=== PATIENT | male | born 1965 | race Caucasian/White ===

== ENCOUNTER 2020-01-02 03:35 | Emergency (ER) | payer BC ==
[2020-01-02 04:22] LABS: Basophils # (A) 0.1 k/uL (0-0.2); Basophils % (A) 1 %; Eosinophils # (A) 0.2 k/uL (0-0.7); Eosinophils % (A) 2 %; HCT 39.3 % (39.0-53.0); HGB 12.8 gm/dL (13.0-17.5); Lymphocytes # (A) 2.1 k/uL (1.0-4.8); Lymphocytes % (A) 25 %; MCH 27.3 pg (25.0-35.0); MCHC 32.7 g/dL (31.0-37.0); MCV 83.5 fL (80.0-100.0); Mean Platelet Volume 7.3; Monocytes # (A) 0.5 k/uL (0-1.0); Monocytes % (A) 6 %; Neutrophils # (A) 5.6 k/uL (1.3-7.7); Neutrophils % (A) 66 %; Platelet Count 340 k/uL (150-450); RDW 12.6 % (11.5-15.5); WBC 8.5 k/uL (3.8-10.6)
--- NOTE | 2020-01-02 04:33 | XR ---
EXAMINATION TYPE: XR chest 2V DATE OF EXAM: 01/02/2020 COMPARISON: 11/29/2013 HISTORY: Chest pain TECHNIQUE: FINDINGS: Heart and mediastinum are normal. Lungs are clear. Diaphragm is normal. Bony thorax is inta ct. There are chest leads. IMPRESSION: Normal chest. No change.
[2020-01-02 04:34] LABS: ALT 38 U/L (4-49); AST 32 U/L (17-59); African American GFR (CKD) >90 (>60 ml/min/1.73 sqM); Albumin 4.4 g/dL (3.5-5.0); Alkaline Phosphatase 68 U/L (38-126); Anion Gap 7 mmol/L; Blood Urea Nitrogen 11 mg/dL (9-20); Calcium 9.4 mg/dL (8.4-10.2); Carbon Dioxide 26 mmol/L (22-30); Chloride 105 mmol/L (98-107); Glucose 112 mg/dL (74-99); Non-African American GFR(CKD) >90 (>60 ml/min/1.73 sqM); Potassium 4.1 mmol/L (3.5-5.1); Sodium 138 mmol/L (137-145); Total Bilirubin 0.2 mg/dL (0.2-1.3); Total Protein 7.3 g/dL (6.3-8.2)
--- NOTE | 2020-01-02 05:00 | ED ---
General Adult HPI - General Chief complaint: Dizziness Stated complaint: High BP Time Seen by Provider: 01/02/20 03:39 Source: patient, EMS Mode of arrival: EMS Limitations: no limitations - History of Present Illness Initial comments: Bandar is a 54 yo M who presents to the ER today for evaluation of lightheadedness and palpitations. She reports is his usual state of health when that last night, he had taken Excedrin for headache earlier in the evening but was feeling fine when he went to bed. Patient reports that he woke suddenly and felt like his heart was racing and beating very hard. Patient reports that he sat up in bed and felt somewhat lightheaded but that resolved. He checked his blood pressure and on his home monitor it read as high which prompted him to call EMS for transport to the hospital. Patient reports that by the time EMS arrived the patient was feeling better, he wasn't having any palpitations and didn't feel like his heart was beating as quickly. Patient reports that by the time he got to the hospital his symptoms had resolved completely. She has no cardiac history or history of hypertension. Patient reports he never had any chest pain or shortness of breath. Patient denies any recent illness including fevers chills nausea vomiting or change in bowel or bladder habits. - Related Data Allergies Allergy/AdvReac Type Severity Reaction Status Date / Time Penicillins Allergy Unknown Verified 01/02/20 03:42 Review of Systems ROS Statement: Those systems with pertinent positive or pertinent negative responses have been documented in the HPI. ROS Other: All systems not noted in ROS Statement are negative. Past Medical History History of Any Multi-Drug Resistant Organisms: None Reported Past Surgical History: Appendectomy Past Psychological History: No Psychological Hx Reported Smoking Status: Never smoker Past Alcohol Use History: None Reported Past Drug Use History: None Reported General Exam - General Exam Comments Initial Comments: Physical Exam GENERAL: Patient is well-developed and well-nourished. Patient is nontoxic and well- hydrated and is in no distress. HENT: Normocephalic, Atraumatic. EYES: PERRL, EOMI PULMONARY: Unlabored respirations. No audible rales rhonchi or wheezing was noted. CARDIOVASCULAR: There is a regular rate and rhythm without any murmurs gallops or rubs. ABDOMEN: Soft and nontender with normal bowel sounds. SKIN: Skin is clear with no lesions or rashes and otherwise unremarkable. : Deferred NEUROLOGIC: Patient is alert and oriented x3. Moving all extremities spontaneously MUSCULOSKELETAL: Normal extremities with adequate strength and full range of motion. No lower extremity swelling or edema. No calf tenderness. PSYCHIATRIC: Normal psychiatric evaluation. Limitations: no limitations Course Vital Signs 01/02/20 01/02/20 03:37 04:15 Temperature 98.3 F Pulse Rate 93 90 Respiratory 18 16 Rate Blood Pressure 144/99 138/99 O2 Sat by Pulse 97 96 Oximetry EKG Findings - EKG Comments: EKG Findings:: EKG was obtained due to complaint of palpitations and hypertension, EKG was obtained at 3:42 AM, rate is 95, rhythm is sinus there is a normal axis, there are normal intervals, AZ 162, QRS 68, QTC 439 there are no acute ST elevations or depressions there is no evidence of acute ischemia or infarction. Medical Decision Making - Medical Decision Making The patient was seen and evaluated, history is obtained from patient History and physical exam are relatively unremarkable Patient woke experiencing palpitations that have high blood pressure he did have high blood pressure by EMS arrival but that resolved in route to the hospital. Upon arrival he is asymptomatic Labs will be checked to ensure the patient had no evidence of end organ damage due to hypertension EKG is nonischemic Patient remained asymptomatic throughout his stay in the emergency department, blood pressure improved, Labs with no acute abnormalities Results were discussed with the patient is comfortable with plan for discharge home and is arty called his brother for a ride. All questions pertaining care were answered return parameters were discussed patient's discharged home in sta ble condition. - Lab Data Result diagrams: 01/02/20 04:06 01/02/20 04:06 Lab Results 01/02/20 01/02/20 01/02/20 Range/Units 04:06 04:06 04:06 WBC 8.5 (3.8-10.6) k/uL RBC 4.70 (4.30-5.90) m/uL Hgb 12.8 L (13.0-17.5) gm/dL Hct 39.3 (39.0-53.0) % MCV 83.5 (80.0-100.0) fL MCH 27.3 (25.0-35.0) pg MCHC 32.7 (31.0-37.0) g/dL RDW 12.6 (11.5-15.5) % Plt Count 340 (150-450) k/uL Neutrophils % 66 % Lymphocytes % 25 % Monocytes % 6 % Eosinophils % 2 % Basophils % 1 % Neutrophils # 5.6 (1.3-7.7) k/uL Lymphocytes # 2.1 (1.0-4.8) k/uL Monocytes # 0.5 (0-1.0) k/uL Eosinophils # 0.2 (0-0.7) k/uL Basophils # 0.1 (0-0.2) k/uL Sodium 138 (137-145) mmol/L Potassium 4.1 (3.5-5.1) mmol/L Chloride 105 (98-107) mmol/L Carbon Dioxide 26 (22-30) mmol/L Anion Gap 7 mmol/L BUN 11 (9-20) mg/dL Creatinine 0.92 (0.66-1.25) mg/dL Est GFR (CKD-EPI)AfAm >90 (>60 ml/min/1.73 sqM) Est GFR (CKD-EPI)NonAf >90 (>60 ml/min/1.73 sqM) Glucose 112 H (74-99) mg/dL Calcium 9.4 (8.4-10.2) mg/dL Total Bilirubin 0.2 (0.2-1.3) mg/dL AST 32 (17-59) U/L ALT 38 (4-49) U/L Alkaline Phosphatase 68 (38-126) U/L Troponin I <0.012 (0.000-0.034) ng/mL Total Protein 7.3 (6.3-8.2) g/dL Albumin 4.4 (3.5-5.0) g/dL Disposition Clinical Impression: Palpitations, Hypertension Disposition: HOME SELF-CARE Condition: Stable Instructions (If sedation given, give patient instructions): Heart Palpitations (DC) Is patient prescribed a controlled substance at d/c from ED?: No Referrals: Antony Luis DO [Primary Care Provider] - 1-2 days
[2020-01-02 05:08] VITALS: BP 131/94; PULSE 87; RESP 18; TEMP 97.9
== END 2020-01-02 05:08 | disposition home or self-care (01) ==
LOC: EC 03:35
DX: I10 Essential (primary) hypertension (principal); R00.2 Palpitations; Z88.0 Allergy status to penicillin
CPT/HCPCS: 36415; 71046; 80053; 84484; 85025; 93005; 99285